=== PATIENT | male | born 1950 | race Caucasian/White ===

== ENCOUNTER 2017-01-05 07:51 | Inpatient (IN) | payer MEDICARE, BC ==
[~2017-01-05] VITALS: Ht 172.7 cm; Wt 70.4 kg
[2017-01-05] VITALS (378 sets, daily range): BP systolic 117–182; BP diastolic 38–90; PULSE 45–56; TEMP 97.2–98.6; O2SAT 90–100
[~2017-01-05 07:51] MED LIST: ALLERGY; ASPIRIN 81M81 MG/TA2 PO; CRESTOR5 MG; ELIQUIS 5MG PO; FISH OIL 1000MG1 CAP PO; MULTAQ400 MG PO; NO HOME MEDICATIONS; NORCO 325 MG-51 TAB PO; PREDNISONE20 MG PO
[2017-01-05 11:16] LABS: BASO # 0.1 (0.0-0.2); BASO % 0.8 % (0.0-2.0); EOS # 0.3 (0.0-0.7); GRAN # 3.8 (1.4-6.5); GRAN % 60.7 % (42.2-75.2); HEMOGLOBIN 15.5 g/dl (13.5-18.0); LYMPH # 1.7 (1.2-3.4); LYMPH % 27.6 % (20.0-51.0); MEAN CELL VOLUME 85 fl (80.0-100.0); MEAN CORPUSCULAR HEMOGLOBIN 30 pg (27.0-31.0); MEAN CORPUSCULAR HGB CONC 35 g/dl (33.0-37.0); MEAN PLATELET VOLUME 10.9 fl (7.4-10.4); MONO # 0.4 (0.1-0.6); MONO % 6.6 % (1.7-9.3); PLATELET COUNT 215 K/mm3 (130-400); RED BLOOD COUNT 5.19 M/mm3 (4.20-5.60); REDCELL DISTRIBUTION WIDTH-CV 12.4 % (11.5-14.5); WHITE BLOOD COUNT 6.2 K/mm3 (4.8-10.8)
[2017-01-05 11:21] LABS: PROTHROMBIN TIME 11.5 SECONDS (9.7-12.8)
[2017-01-05 11:59] LABS: CALCIUM 9.4 mg/dL (8.4-10.2); CREATININE, serum 0.75 mg/dL (0.66-1.25); POTASSIUM 4.4 mmol/L (3.4-5.0)
[2017-01-06] VITALS (145 sets, daily range): BP systolic 108–154; BP diastolic 47–91; PULSE 46–70; TEMP 97.9–98.1; O2SAT 88–99
[2017-01-06 05:59] LABS: BASO # 0.1 (0.0-0.2); BASO % 0.7 % (0.0-2.0); EOS # 0.3 (0.0-0.7); EOS % 3.9 % (0-4.0); GRAN # 4.7 (1.4-6.5); GRAN % 65.3 % (42.2-75.2); HEMATOCRIT 44.8 % (42.0-52.0); HEMOGLOBIN 15.5 g/dl (13.5-18.0); LYMPH # 1.7 (1.2-3.4); LYMPH % 23.6 % (20.0-51.0); MEAN CELL VOLUME 87 fl (80.0-100.0); MEAN CORPUSCULAR HEMOGLOBIN 30 pg (27.0-31.0); MEAN CORPUSCULAR HGB CONC 35 g/dl (33.0-37.0); MEAN PLATELET VOLUME 10.7 fl (7.4-10.4); MONO # 0.4 (0.1-0.6); MONO % 6.1 % (1.7-9.3); PLATELET COUNT 207 K/mm3 (130-400); RED BLOOD COUNT 5.17 M/mm3 (4.20-5.60); REDCELL DISTRIBUTION WIDTH-CV 12.4 % (11.5-14.5); WHITE BLOOD COUNT 7.2 K/mm3 (4.8-10.8)
[2017-01-06 06:24] LABS: CALCIUM 9.1 mg/dL (8.4-10.2); CREATININE, serum 0.8 mg/dL (0.66-1.25); POTASSIUM 4.2 mmol/L (3.4-5.0)
[2017-01-06] MEDS ORDERED: PLAVIX 75MG TAB75 MG PO (11:12)
[2017-01-06] MEDS ORDERED: ALTACE 2.5MG T2.5 MG PO ×2 (11:13)
[2017-01-06] MEDS ORDERED: LIPITOR20 MG PO (11:13)
[2017-01-06] MEDS ORDERED: FISH OIL 1000MG1 CAP PO (11:14)
[2017-01-06] MEDS ORDERED: ASPIRIN E.C. 8181 MG PO (11:15)
[2017-01-06] MEDS ORDERED: NITROSTAT0.4 MG/TAB SL (11:16)
== END 2017-01-06 12:00 | disposition home or self-care (01) | DRG 247 ==
LOC: MEDICAL 07:51 → IMCU 14:08
PROVIDERS: Internal Medicine Cardiovascular Disease
PROC: B2111ZZ Fluoroscopy of Multiple Coronary Arteries using Low Osmolar Contrast (ICD-10-PCS; principal; 2017-01-05)
PROC: 027034Z Dilation of Coronary Artery, One Artery with Drug-eluting Intraluminal Device, Percutaneous Approach (ICD-10-PCS; 2017-01-05)
DX: I48.0 Paroxysmal atrial fibrillation (principal); I25.10 Atherosclerotic heart disease of native coronary artery without angina pectoris
CPT/HCPCS: C1725; C1769; C1874; C1887; C1894; C9600; J0583; J1644; J2250; J3010; Q9967

== ENCOUNTER 2017-04-09 16:11 | Outpatient (RCR) | payer MEDICARE, BC ==
[~2017-04-09 16:11] MED LIST changes: +ALTACE 2.5MG T2.5 MG PO; +ASPIRIN E.C. 8181 MG PO; +LIPITOR20 MG PO; +NITROSTAT0.4 MG/TAB SL; +PLAVIX 75MG TAB75 MG PO
== END 2017-04-11 | disposition home or self-care (01) ==
LOC: COL.CR
DX: Z48.812 Encounter for surgical aftercare following surgery on the circulatory system (principal); Z95.5 Presence of coronary angioplasty implant and graft; I25.10 Atherosclerotic heart disease of native coronary artery without angina pectoris; I48.91 Unspecified atrial fibrillation

== ENCOUNTER 2021-02-02 03:59 | Observation (INO) | payer MEDICARE, BC ==
[~2021-02-02] VITALS: Ht 172.7 cm; Wt 72.5 kg
[2021-02-02] VITALS (302 sets, daily range): BP systolic 146–148; BP diastolic 68–74; PULSE 56–61; TEMP 98–98.1; O2SAT 91–100
[2021-02-02 04:37] LABS: BASO # 0.1 (0.0-0.2); EOS # 0.6 (0.0-0.7); EOS % 6.2 % (0-4.0); GRAN # 6.5 (1.4-6.5); GRAN % 71.3 % (42.2-75.2); HEMATOCRIT 46.9 % (42.0-52.0); HEMOGLOBIN 15.7 g/dl (13.5-18.0); LYMPH # 1.1 (1.2-3.4); LYMPH % 12.3 % (20.0-51.0); MEAN CELL VOLUME 90 fl (80.0-100.0); MEAN CORPUSCULAR HEMOGLOBIN 30 pg (27.0-31.0); MEAN CORPUSCULAR HGB CONC 34 g/dl (33.0-37.0); MEAN PLATELET VOLUME 10.7 fl (7.4-10.4); MONO # 0.8 (0.1-0.6); MONO % 8.9 % (1.7-9.3); PLATELET COUNT 222 K/mm3 (130-400); RED BLOOD COUNT 5.21 M/mm3 (4.20-5.60); REDCELL DISTRIBUTION WIDTH-CV 12.5 % (11.5-14.5)
[2021-02-02 04:44] LABS: CALCIUM 9.1 mg/dL (8.4-10.2); CREATININE, serum 0.82 (0.66-1.25); POTASSIUM 4.3 mmol/L (3.4-5.0)
[2021-02-02] MEDS ORDERED: ELIQUIS 5MG PO ×2 (05:53→10:36)
--- NOTE | 2021-02-02 07:19 | NUR ---
Patient arrived from the ED via wheelchair around 0615. He is very stable on his feet and got on the bed without any issues. His vitals are stable but his blood pressure is a little high. 150's systolic. He said he feels much better and his swelling has "gone down a lot". He said he can now talk and close his mouth without any issues. His respiratory status and airway is stable. He has no obstructions. He is on room air and saturation is 100%. IV fluids are running at 75 cc/hr.
--- NOTE | 2021-02-02 08:00 | NUR ---
REPORT RECIEVED FROM PREVIOUS SHIFT RN. PATIENT FOUND ALERT AND ORIENTED IN BED. ALERT AND ORIENTEDX 4. DENIES PAIN OR NAUSEA. STATES SWELLING IS MUCH BETTER. DOES FEELS SOME ON LOWER PART OF TOUNGUE. AREA ASSESED WITH MILD SWELLING NOTED. HEART SOUNDS REGULAR, LUNG SOUNDS CLEAR, BOWEL SOUNDS ACTIVE. PATIENT REMAINS NPO AT THIS TIME. IV FLUIDS INFUSING WITHOUT DIFFICULTY. PATIENT ABLE TO TURN SELF IN BED. ALL SAFETY MAINTAINED AT THIS TIME. CALL [facility] WITHIN REACH, WILL CONTINUE TO MONITOR.
[2021-02-02] MEDS ORDERED: LIPITOR 40MG TA40 MG PO (10:20)
[2021-02-02] MEDS ORDERED: PRINIVIL20 MG PO (10:38)
[2021-02-02] MEDS ORDERED: NORVASC 10MG10 MG PO (10:38)
[2021-02-02] MEDS ORDERED: [UNRECOGNIZED DRUG - REMARK] PO (10:39)
--- NOTE | 2021-02-02 12:30 | NUR ---
Patient reports zero swelling or irritaion while eating lunch. States he feels back to baseline.
--- NOTE | 2021-02-02 14:04 | NUR ---
Sw met with patient to complete intake. Patient states that he lives with his Jeanne [phone]. Patient provides that he does not utilize any DME and is independent with ADL's. Patient states that his PCP is Dr. Ibarra, pharmacy is [facility] and is able to afford his medications. Patient states that he thinks his son has been appointed as his DPOA[facility] [phone]. Patient states that he is unsure if he has documenation. Patient provides that he plans to be discharged from facility some time today and has no concerns with doing so. SW checked with nurse in regards to patient's discharge and nurse provided he will probably go home sometime later. SW will coninue to follow
[2021-02-02] MEDS ORDERED: BENADRYL25 M2 PO (15:13)
--- NOTE | 2021-02-02 15:35 | NUR ---
MD MADE AWARE OF PATIENTS IMPROVED STATUS. STATES THAT HE MAY BE DISCHARGED HOME. PATIENT STATES HE WOULD LIKE TO GO NOW AND IS ON HER WAY TO PICK HIM UP. IV REMOVED FROM RIGHT FOREARM, INTACT. TO GET DRESSED AT THIS TIME.
--- NOTE | 2021-02-02 15:50 | NUR ---
REVIEWED DISCHARGE PACKETS WITH PATIENT, VERBALIZED UNDERSTANDING. REVIEWED NEW MEDICATION CHANGES. ALL BELONGINGS IN HAND. AT ER ENTRANCE TO DRIVE PATIENT HOME. AMBULATED TO ENTRANCE WITHOUT DIFFICULTY.
== END 2021-02-02 15:50 | disposition home or self-care (01) ==
LOC: COL.ER 03:59 → ICU 05:56
PROVIDERS: Emergency Medicine; ADMIT Family Medicine
DX: K14.8 Other diseases of tongue (principal); T78.3XXA Angioneurotic edema, initial encounter; I10 Essential (primary) hypertension; I48.91 Unspecified atrial fibrillation; I25.10 Atherosclerotic heart disease of native coronary artery without angina pectoris; Z95.1 Presence of aortocoronary bypass graft; Z79.899 Other long term (current) drug therapy; Z79.82 Long term (current) use of aspirin; Z79.02 Long term (current) use of antithrombotics/antiplatelets; Z88.2 Allergy status to sulfonamides
CPT/HCPCS: G0378; J0171; J1200; J2920; J2930; J7030; J7120

== ENCOUNTER 2023-12-09 00:17 | Emergency (ER) | payer MEDICARE ==
[~2023-12-09] VITALS: Ht 172.7 cm; Wt 72.7 kg
[~2023-12-09 00:17] MED LIST changes: +BENADRYL25 M2 PO; +LIPITOR 40MG TA40 MG PO; +NORVASC 10MG10 MG PO; +PRINIVIL20 MG PO; +[UNRECOGNIZED DRUG - REMARK] PO
[2023-12-09 00:22] VITALS: TEMP 97.6
[2023-12-09 00:51] LABS: BASO # 0.1 K/mm3 (0.0-0.2); BASO % 0.8 % (0.0-2.0); EOS # 0.4 K/mm3 (0.0-0.7); GRAN # 4.5 K/mm3 (1.4-6.5); GRAN % 57.6 % (42.2-75.2); HEMATOCRIT 47.8 % (42.0-52.0); LYMPH # 2.1 K/mm3 (1.2-3.4); LYMPH % 27.3 % (20.0-51.0); MEAN CELL VOLUME 86 fl (80.0-100.0); MEAN CORPUSCULAR HEMOGLOBIN 31 pg (27-31); MEAN CORPUSCULAR HGB CONC 36 g/dl (33.0-37.0); MEAN PLATELET VOLUME 10.9 fl (7.4-10.4); MONO # 0.7 K/mm3 (0.1-0.6); MONO % 8.8 % (1.7-9.3); PLATELET COUNT 230 K/mm3 (130-400); RED BLOOD COUNT 5.53 M/mm3 (4.20-5.60); REDCELL DISTRIBUTION WIDTH-CV 12.2 % (11.5-14.5)
[2023-12-09 01:03] LABS: ALANINE AMINOTRANSFERASE 26 U/L (0-55); ALBUMIN 3.9 gm/dL (3.4-4.8); ALKALINE PHOSPHATASE 76 U/L (40-150); ANION GAP 13 mmol/L (7-16); AST,SGOT 22 U/L (5-34); BILIRUBIN,TOTAL 0.3 mg/dL (0.2-1.2); BLOOD UREA NITROGEN 22 mg/dL (8-26); C-REACTIVE PROTEIN 0.07 mg/dL (0.00-0.50); CALCIUM 9.4 mg/dL (8.4-10.2); CARBON DIOXIDE 20 mmol/L (23-31); CHLORIDE 104 mmol/L (98-107); CREATININE, serum 0.85 mg/dL (0.72-1.25); GLUCOSE 117 mg/dL (70-99); LIPASE 120 U/L (8-78); SODIUM 137 mmol/L (136-145); TOTAL PROTEIN 7.5 gm/dL (6.2-8.1)
[2023-12-09 01:10] LABS: TROPONIN-I < 0.010 ng/mL (0.00-0.033)
[2023-12-09] MEDS ORDERED: Iohexol 300 - 100 ML VIAL IV ONE (02:03)
[2023-12-09] MEDS ORDERED: NS 60 ML IV ONE (02:04)
[2023-12-09 03:35] VITALS: BP 156/78; PULSE 80
== END 2023-12-09 03:34 | disposition home or self-care (01) ==
LOC: COL.ER 00:17
PROVIDERS: Nurse Practitioner Primary Care
DX: M54.6 Pain in thoracic spine (principal); R07.9 Chest pain, unspecified
CPT/HCPCS: Q9967